=== PATIENT | female | born 1940 | race Caucasian/White ===

== ENCOUNTER 2018-11-21 09:33 | Inpatient (IN) ==
[2018-11-21] MEDS ORDERED: NITROGLYCERIN TOP ONE (10:14)
[2018-11-21] MEDS ORDERED: ASPIRIN PO ONE (10:14)
[2018-11-21] MEDS ORDERED: LASIX IV ONE (10:14)
[2018-11-21] MEDS ORDERED: CARDIZEM IV ONE (10:14)
[2018-11-21] MEDS ORDERED: NS 1,000 ML IV ONE (10:15)
[2018-11-21] MEDS ORDERED: LOVENOX 1 MG/KG SUBQ ONE (10:15)
[2018-11-21 10:26] LABS: BASO# 0.02 X1000 (0.0-0.2); BASO% 0.4 % (0.0-0.8); EOS# 0.12 X1000 (0.0-0.7); EOS% 2.5 % (0.0-10.0); HEMATOCRIT 34.3 % (37.0-47.0); HEMOGLOBIN 10.3 g/dL (12.0-16.0); LYMPH# 1.37 X1000 (1.2-3.4); MCH 28.9 PG (27-31); MCV 96.1 FL (81-99); MONO# 0.51 X1000 (0.11-0.59); MONO% 10.8 % (1.7-9.3); MPV 9.6 FL (7.4-10.4); NEUT# 2.71 X1000 (1.4-6.5); NEUT% 57.3 % (42.2-75.2); PLT 183 X1000 (130-400); RBC 3.57 XMIL (4.2-5.4); RDW 13.7 % (11.5-14.5); WBC 4.73 X1000 (4.8-10.8)
[2018-11-21] MEDS ORDERED: LOVENOX SUBQ ONE (10:30)
[2018-11-21] MEDS ORDERED: LOPRESSOR PO ONE (10:34)
--- NOTE | 2018-11-21 10:34 | Diag Imaging Result Doc PS360 ---
CHEST-PORTABLE - 11/21/2018 INDICATION: sob COMPARISON: 06/29/2017 FINDINGS: There is significant cardiomegaly and pulmonary vascular congestion. There are some heterogeneous patchy interstitial infiltrates bilaterally area these are indeterminate but suggesting pulmonary edema. No pneumothorax or significant pleural effusion. IMPRESSION: Cardiomegaly. Heterogeneous interstitial infiltrates compatible with pulmonary edema. Electronically signed by Ramírez Silva 11/21/2018 10:32 AM
[2018-11-21 10:36] LABS: INR 1.02; PROTIME 14.2 Seconds (11.0-16.0)
[2018-11-21 10:37] LABS: PTT 36.7 Seconds (22.3-41.8)
--- NOTE | 2018-11-21 10:43 | EKG Report ---
Test Performed on : 11/21/2018 10:02:59 AM Test Reason : sob Blood Pressure : / mmHG Vent. Rate : 143 BPM Atrial Rate : 147 BPM P-R Int : 000 ms QRS Dur : 108 ms QT Int : 294 ms P-R-T Axes : 000 -53 085 degrees QTc Int : 453 ms Atrial fibrillation. with rapid ventricular response. with premature ventricular or aberrantly conduc stephen complexes. Left axis deviation Septal infarct (cited on or before 17-MAR-2008) Abnormal ECG When compared with ECG of 17-MAR-2008 21:27, Atrial fibrillation. has replaced Sinus rhythm. QRS duration has increased Questionable change in initial forces of Anteroseptal leads Nonspecific T wave abnormality no longer evident in Inferior leads Unconfirmed Result
[2018-11-21 10:52] LABS: ALB/GLOB RATIO 1.4; ALBUMIN 4.2 g/dL (3.5-5.0); CALCIUM 9.7 mg/dL (8.8-10.2); CREATININE 1.7 mg/dL (0.5-0.9); MAGNESIUM 1.7 mg/dL (1.5-2.7); POTASSIUM 4.4 mmol/L (3.5-5.1); TOTAL BILIRUBIN 0.62 mg/dL (0.20-1.00); TOTAL PROTEIN 7.2 g/dL (6.3-8.3)
--- NOTE | 2018-11-21 11:22 | PROVIDER DOCUMENTATION ---
This chart was entered by Carmita Sherowod Scribe, acting as scribe for Waylon Boone MD. HPI-Cardiac General - General Chief Complaint: General Adult Stated Complaint: SOB,DIZZINESS,SLEEP ALL THE TIME Time Seen by Provider: 11/21/18 10:04 Source: patient, family (daughter) Allergies/Adverse Reactions: Patient Allergies Allergy/AdvReac Type Severity Reaction Status Date / Time Sulfa (Sulfonamide Allergy RASH Verified 11/21/18 10:15 Antibiotics) Home Medications: Home Medication List Medication Instructions Recorded Confirmed Last Taken Type Ergocalciferol (Vitamin D2) 50,000 unit PO DAILY 11/21/18 11/21/18 Unknown History [Vitamin D2] Gabapentin 600 mg PO DIRECTED 11/21/18 11/21/18 Unknown History Galantamine HBr [Galantamine ER] 8 mg PO DAILY 11/21/18 11/21/18 Unknown History Losartan/Hydrochlorothiazide 1 ea PO DAILY 11/21/18 11/21/18 Unknown History [Losartan-Hctz 100-12.5 mg Tab] Meloxicam 15 mg PO DAILY PRN 11/21/18 11/21/18 Unknown History Simvastatin 40 mg PO DAILY 11/21/18 11/21/18 Unknown History Sitagliptin Phosphate [Januvia] 100 mg PO DAILY 11/21/18 11/21/18 Unknown History Venlafaxine HCl [Venlafaxine HCl 150 mg PO DAILY 11/21/18 11/21/18 Unknown History ER] - History of Present Illness-Cardiac Nature of Presenting Problem: 78 yowf presents to the ed with her daughter at bedside. pt c/o palpitations, sob, cough, fatigue, dizziness and BLE edema for 2 weeks. ptr sts has no hx of afib or cardiac disorders. pt does have HTN. pt sts took her BP at home and noted the HR was elevated but just thought it was not a correct reading. pt has noted that in the past weeks she can not lie flat at night due to sob. pt on exam is nontoxic in appearance but mildly anxious pt is a Lisa Ortega pt but Dr Ortega deferred care to Dr Boone Quality of Pain: reports: none Severity in ED: moderate (HR 150) Onset/Duration: other (possible about 2 weeks) Timing: still present Context/Activities at Onset: reports: light activity Modifying Factors: improves with: nothing. worse with: lying down Palpitation Quality: fast/pounding heart beat History of arrythmia: reports: none Recent use of:: reports: caffeine (but deies any this am) Nitro Today/Relief: reports: provided by ED (a paste in ed) Aspirin Treatment Today: reports: 325 mg x 1, provided by ED Prior Chest Pain/Cardiac Workup: reports: no prior cardiac workup Associated Symptoms: reports: dizziness, edema, fatigue, shortness of breath. denies: abdominal pain, back pain, headache, nausea, syncope, vomiting Similar Symptoms Previously?: No Recently Seen Here or By Another Healthcare Provider: No Review of Systems - Adult - REVIEW OF SYSTEMS - ADULT Constitutional: denies: chills, fever Eyes: reports: no symptoms reported Ears, Nose, Mouth & Throat: reports: no symptoms reported Cardiovascular: reports: see HPI, edema, irregular heart rate, palpitations. denies: chest pain, syncope Respiratory: reports: no symptoms reported Gastrointestinal: denies: abdominal pain, diarrhea, nausea, vomiting Genitourinary: reports: no symptoms reported Musculoskeletal: denies: back pain, neck pain Integumentary: reports: no symptoms reported Neurological: reports: see HPI, dizziness/vertigo. denies: ataxia, headac he/migraines, numbness, paresthesia, slurred speech, syncope, tremors Psychiatric: reports: see HPI, anxiety. denies: insomnia, suicidal thoughts Endocrine: reports: no symptoms reported Hematologic/Lymphatic: reports: no symptoms reported Allergic/Immunologic: reports: no symptoms reported All Other Systems: Reviewed and Negative Past History - Adult - PAST MEDICAL HISTORY-ADULT Review of Records: reports: Old Records Reviewed, Nursing Assessment Review, Medications Reviewed, Social history reviewed & non-contributory. Major Childhood Illnesses: reports: denies history Cardiovascular: reports: HTN Respiratory: reports: denies history Gastrointestinal: reports: denies history Obstetrical/Gynecological: reports: other (Breast CA) Genitourinary: reports: denies history Musculoskeletal: reports: denies history Neurological: reports: denies history Psychiatric: reports: denies history Endocrine/Immune: reports: Diabetes Other Conditions: reports: other cancer (breast) - PRIOR SURGERIES/PROCEDURES Surgical/Procedure History: reports: tonsillectomy, other (breast biopsy) - IMMUNIZATION STATUS Childhood Immunizations: See Nurse Assessment Flu Vaccine: See Nurse Assessment - FAMILY HISTORY Family History: reviewed, not pertinent - SOCIAL HISTORY Smoking: denies Substance Use: denies Living Situation: family Physical Exam-General - PHYSICAL EXAM-ADULT Initial Vital Signs Reviewed: Yes - CONSTITUTIONAL General Appearance: appears well, alert, obese, anxious - EYES Eyes: PERRL/EOMI, pink conjunctivae - HEAD, EARS, NOSE, MOUTH & THROAT HENMT: normocephalic/atraumatic, moist mucous membranes, normal ENT inspection - NECK Neck: non-tender, full range of motion, supple, normal inspection - RESPIRATORY Respiratory: chest non-tender, decreased breath sounds. negative: respiratory distress, accessory muscle use, crackles, rales, rhonchi - CARDIOVASCULAR Cardiovascular: irregularly irregular (hr 150) - GASTROINTESTINAL (ABDOMEN) Abdominal Exam: normal bowel sounds, non tender, soft - LYMPHATIC Lymphatic: no adenopathy - MUSCULOSKELETAL Back Exam: normal inspection, no CVA tenderness, no vertebral tenderness Extremity: normal range of motion, non-tender, normal gait, swelling (BLE edema +2) - SKIN Integumentary: normal color, normal turgor, warm/dry - NEUROLOGIC Neurologic: grossly normal, no motor/sensory deficits - PSYCHIATRIC Psych/Mental Status: normal mood/affect, normal thought content, normal thought process, oriented x 3 - HEART Score HEART Score: History: Moderately Suspicious HEART Score: ECG: Non-Specific Repolarization Disturbance/LBBB/PM HEART Score: Age: > or = 65 Years HEART Score: Risk Factors for Atherosclerotic Disease: 1 or 2 Risk Factors HEART Score: Troponin: < or = Normal Limit Total HEART Score:: 5 Progress - PLAN OF CARE/RESULTS Progress/Plan/Lab Results: Vital Signs - 8 hr 11/21/18 09:57 11/21/18 10:11 11/21/18 10:12 Temperature 98.0 F Pulse Rate 150 H 152 H 137 H Respiratory Rate 18 35 H 24 Blood Pressure 114/82 85/60 O2 Sat by Pulse Oximetry 90 L 96 97 11/21/18 10:15 11/21/18 10:17 11/21/18 10:20 Temperature Pulse Rate 146 H 152 H 146 H Respiratory Rate 19 24 19 Blood Pressure 127/83 108/94 O2 Sat by Pulse Oximetry 96 96 96 11/21/18 10:30 11/21/18 10:31 Temperature Pulse Rate 109 H 101 H Respiratory Rate 24 12 Blood Pressure 106/72 O2 Sat by Pulse Oximetry 95 93 L Laboratory Results - last 24 hr 11/21/18 11/21/18 11/21/18 10:12 10:12 10:12 WBC 4.73 L RBC 3.57 L Hgb 10.3 L Hct 34.3 L MCV 96.1 MCH 28.9 MCHC 30.0 L RDW Std Deviation 13.7 Plt Count 183 MPV 9.6 Immature Gran % (Auto) 0.0 Neut % (Auto) 57.3 Lymph % (Auto) 29.0 [place] % (Auto) 10.8 H Eos % (Auto) 2.5 Baso % (Auto) 0.4 Immature Gran # (Auto) 0.00 Neut # (Auto) 2.71 Lymph # (Auto) 1.37 [place] # (Auto) 0.51 Eos # (Auto) 0.12 Baso # (Auto) 0.02 PT INR PTT (Actin FS) Sodium 144 Potassium 4.4 Chloride 104 Carbon Dioxide 28 Anion Gap 12 BUN 29 H Creatinine 1.7 H Estimated GFR/1.73 m2 29 BUN/Creatinine Ratio 17 Glucose 117 H Calculated Osmolality 294 Calcium 9.7 Magnesium 1.7 Total Bilirubin 0.62 AST 12 ALT 12 Alkaline Phosphatase 80 Creatine Kinase 60 Troponin T Mpf-O-Sgthvrgntao Pept 5746 H Total Protein 7.2 Albumin 4.2 Globulin 3.0 Albumin/Globulin Ratio 1.4 11/21/18 11/21/18 10:12 10:12 WBC RBC Hgb Hct MCV MCH MCHC RDW Std Deviation Plt Count MPV Immature Gran % (Auto) Neut % (Auto) Lymph % (Auto) [place] % (Auto) Eos % (Auto) Baso % (Auto) Immature Gran # (Auto) Neut # (Auto) Lymph # (Auto) [place] # (Auto) Eos # (Auto) Baso # (Auto) PT 14.2 INR 1.02 PTT (Actin FS) 36.7 Sodium Potassium Chloride Carbon Dioxide Anion Gap BUN Creatinine Estimated GFR/1.73 m2 BUN/Creatinine Ratio Glucose Calculated Osmolality Calcium Magnesium Total Bilirubin AST ALT Alkaline Phosphatase Creatine Kinase Troponin T < 0.010 Bnu-O-Ftmrstodnzy Pept Total Protein Albumin Globulin Albumin/Globulin Ratio Orders Category Date Time Status Cardiac Monitoring DIRECTED Care 11/21/18 10:13 Active Nursing- Obtain EKG once Care 11/21/18 10:13 Active Saline Loc NOW Care 11/21/18 10:13 Active CHEST-PORTABLE [RAD] Stat Exams 11/21/18 10:14 Completed CBC WITH ELECTRONIC DIFF [HEME] Stat Lab 11/21/18 10:12 Completed CK PROFILE [SP CHEM] Stat Lab 11/21/18 10:12 Completed COMPREHENSIVE METABOLIC PANEL [CHEM] Stat Lab 11/21/18 10:12 Completed MAGNESIUM [CHEM] Stat Lab 11/21/18 10:12 Completed PRO B-NATRIURETIC PEPTIDE Stat Lab 11/21/18 10:12 Completed PROTIME WITH INR [COAG] Stat Lab 11/21/18 10:12 Completed PTT [COAG] Stat Lab 11/21/18 10:12 Completed TROPONIN T Stat Lab 11/21/18 10:12 Completed URINALYSIS W/POSS RFLX CULT [URINALYSIS] Stat Lab 11/21/18 10:14 Uncollected 0.9% Sodium Chloride Inj [Ns] 1,000 ml Med 11/21/18 10:15 Active IV 75 mls/hr Aspirin Med 11/21/18 10:14 Discontinued 325 mg PO NOW ONE Diltiazem [Cardizem] Med 11/21/18 10:14 Discontinued 20 mg IV NOW ONE Enoxaparin 1 mg/kg [Lovenox 1 mg/kg] Med 11/21/18 10:15 Discontinued 1 each SUBQ NOW ONE Enoxaparin [Lovenox] Med 11/21/18 10:30 Discontinued 90 mg SUBQ NOW ONE Furosemide [Lasix] Med 11/21/18 10:14 Discontinued 20 mg IV NOW ONE Metoprolol [Lopressor] Med 11/21/18 10:34 Discontinued 25 mg PO NOW ONE Nitroglycerin Med 11/21/18 10:14 Discontinued 0.5 inch TOP NOW ONE EKG [EKG] Stat Ther 11/21/18 10:13 Draft Result Diagrams: 11/21/18 10:12 11/21/18 10:12 - REASSESSMENT Reassessment #1 Time Reassessed: 10:33 (dr boone at bedside) Status: unchanged Reassessment #2 Time Reassessed: 11:19 Status: improving (Much better after meds. Rate controlled with IV cardizem and po metoprolol) - EKG 1 Time of EKG reading by physician:: 10:00 EKG Read and Signed by:: Waylon Boone EKG Interpretation (*Must complete 3 of following elements*): Abnormal Rate: 143 Rhythm: afib w/ RVR w/ premature ventricular or aberrantly conducted complexes [place]: left (deviation) QRS: poor R wave progression IA Interval: normal Prior EKG Comparison: no prior EKG Comments: septal infarct, age undetermined - XRAY 1 XRAY: Bilateral XRAY Study: Chest Impression: See EMR Report (CHEST-PORTABLE - 11/21/2018 INDICATION: sob COMPARISON: 06/29/2017 FINDINGS: There is significant cardiomegaly and pulmonary vascular congestion. There are some heterogeneous patchy interstitial infiltrates bilaterally area these are indeterminate but suggesting pulmonary ed marianela. No pneumothorax or significant pleural effusion. IMPRESSION: Cardiomegaly. Heterogeneous interstitial infiltrates compatible with pulmonary edema. Electronically signed by Ramírez Silva 11/21/2018 10:32 AM 11/21/18 1032 Interpreting Physician: Ramírez Silva MD Dictated Date/Time: 11/21/18 1030 cc: Waylon Boone MD; Freddie Ortega MD) - CONSULTS/PCP/HOSPITALIST Notification #1 *Consult/PCP/Hospitalist*: Jordan Time Discussed: 11:21 Consult Disposition: Will see in ED Departure - Departure Date of Disposition Decision: 11/21/18 Time of Disposition Decision: 11:21 DIAGNOSIS: Paroxysmal atrial fibrillation with rapid ventricular response, New onset of congestive heart failure Disposition: ADMITTED INPATIENT 09 Certified Medical Emergency: Emergent Condition: Fair Referrals and Follow-Ups: Freddie Ortega MD [Primary Care Provider] - - Critical Care Note This patient required my direct & personal management of CC.: Yes Total Time (mins): 45 Critical Care Statement: This patient required my direct personal management to treat or rule out processes, the absence of which, could potentiallly result in sudden, clinically significant life or limb threatening deterioration. Comments: new onset afib with rvr Attestation - Physician/ ARIANE Attestation Patient care was provided by Advanced Practice Provider:: No The physician spent face to face time with patient:: Yes Advanced Practice Provider documentation review:: Supervising physician onsite and consulted in the evaluation and care of this patient. The physician did have a face to face encounter with the patient. This chart was documented by the indicated scribe, (Carmita Sherwood Scribe) and accurately reflects the services I performed and decisions made by me, Waylon Boone MD, as attested by the provider's signature.
[2018-11-21 11:41] LABS: URINE SOURCE CLEAN CATCH
[2018-11-21 11:49] LABS: BILIRUBIN URINE NEGATIVE (NEGATIVE); BLOOD URINE NEGATIVE (NEGATIVE); COLOR YELLOW; GLUCOSE URINE NEGATIVE (NEGATIVE); KETONE URINE NEGATIVE (NEGATIVE); LEUKOCYTES URINE LARGE (NEGATIVE); NITRITE URINE NEGATIVE (NEGATIVE); PH URINE 5.5; PROTEIN URINE NEGATIVE (NEGATIVE); SP GRAVITY URINE 1.001; TURBIDITY URINE CLEAR (CLEAR); UROBILINOGEN URINE NORMAL (NORMAL)
[2018-11-21 11:50] LABS: UR EPITHELIAL CELLS <10 /HPF (<10); URINE BACTERIA NEGATIVE /HPF; URINE RBC <10 /HPF (<10); URINE WBC 20-40 /HPF (<10)
[2018-11-21] MEDS ORDERED: SODIUM CHLORIDE 0.9% INJ PRN (13:01)
[2018-11-21] MEDS ORDERED: PHENERGAN IV PRN (13:01)
[2018-11-21] MEDS ORDERED: CARDIZEM 100 MG/NS 100 MG/100 ML IVPB IV SCH (13:01)
[2018-11-21 13:03] LABS: FREE T4 1.15 ng/dL (0.93-1.70); TSH 2.32 uIUmL (0.27-4.20)
[2018-11-21] MEDS: LASIX IV SCH (13:59)
[2018-11-21] MEDS: CARDIZEM PO SCH ×2 (13:59→17:33)
[2018-11-21] MEDS: TYLENOL PO PRN (16:27)
[2018-11-21] MEDS: HUMULIN R SUBQ SCH ×2 (16:40→20:25)
--- NOTE | 2018-11-21 17:42 | HISTORY AND PHYSICAL ---
HISTORY OF PRESENT ILLNESS: Mrs. Emily Monzon is a 78-year-old lady who is well known to me. 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 She presented to the ER with complaint of a 3-day history of increasing shortness of breath, increasing work of breathing, PND, orthopnea, dyspnea with exertion and increasing peripheral edema. Chest x-ray showed bilateral interstitial edema. Her proBNP was in excess of 5000. She denied any chest pain or anginal equivalents. She was also with complaint of palpitations. Her initial EKG demonstrated atrial fibrillation with RVR. Her heart rate was in the 130s and 140s. She was given metoprolol and IV Cardizem in the ER. PAST MEDICAL HISTORY: Type 2 fpu-poxydvt-irhosgjdd diabetes mellitus complicated by polyneuropathy, chronic renal insufficiency, essential hypertension, mild cognitive impairment, mixed hyperlipidemia. PAST SURGICAL HISTORY: Tonsillectomy with adenoidectomy, breast lumpectomy, bilateral cataract surgery. FAMILY HISTORY: Father had colon cancer. He at the age of 67. Mother had an meningioma. She at age 93. Brother at age 78 of complications of colon cancer. Her sister had colon cancer. ALLERGIES: Sulfa. MEDICATIONS: Gabapentin 600 mg 1 tablet in the morning and 2 capsules at night, galantamine ER 8 mg daily, losartan HCT 100/12.5 daily, meloxicam 15 mg daily, simvastatin 20 mg at bedtime, venlafaxine ER 150 mg daily. REVIEW OF SYSTEMS: She denies any recent weight gain or weight loss.HEENT: She wears glasses. CV: No chest pain but she has had palpitations. Pulmonary: See HPI. GI: No nausea, vomiting, reflux, dysphagia, melena, hematochezia. Endocrine: No polyuria, no polydipsia. Skin: No easy bruisability. : No leakage of urine with coughing or laughing. Neuro: No migraines or seizures. This is an acutely ill-appearing 78-year-old lady in mild distress secondary to shortness of breath. Pulse 110 and irregular, respiratory rate 20, O2 saturation 94%, BP 108/80. HEENT: Fundi with arteriolar wall thickening. Pupils equal, round, reactive to light. Extraocular eye movements intact. TMs without bullae. Neck: Supple. No masses, JVD or bruits. CV: Irregularly irregular. Lungs: Crackles in the bases bilaterally. Abdomen: Soft, nontender with active bowel sounds. Extremities: 1+ pitting edema bilaterally. Breasts/ASSISTANT COOK/Rectal: Exams deferred. Neuro: She is alert and oriented to name, place, and time. Cranial nerves 2-12 intact grossly. She has normal tone and strength in the upper and lower extremities. She has decreased light touch in the distal extremities bilaterally. ASSESSMENT AND PLAN: 1. New onset atrial fibrillation with rapid ventricular response. We will admit her to the CICU and begin a Cardizem drip per protocol. We will rule her out for myocardial ischemia by serial enzymes. We will check thyroid studies. I will arrange for a 2D echocardiogram with color Doppler and spectral flow Doppler studies. We will begin Lovenox 1 mg subcu b.i.d. 2. Hypertension. Her blood pressure is stable. We will hold the losartan HCT as her blood pressure is low after receiving diltiazem. 3. Mixed hyperlipidemia. We will continue simvastatin 40 mg at bedtime. 4. Type 2 nvw-jonwjad-gdzloidfm diabetes mellitus complicated by polyneuropathy. We will continue 1800 calorie ADA diet, pattern sugars, Humulin R sliding scale and Januvia 100 mg daily. 5. Given her comorbid conditions and clinical presentation, admission to the hospital for the management of the new onset atrial fibrillation with rapid ventricular response and acute congestive heart failure is necessary. Attempting to treat her as an outpatient would increase the risk of worsening respiratory distress and possibly . I anticipate that she will be in the hospital for at least 2 midnights and I will therefore place her in inpatient status. We will begin Lovenox 1 mg/kg subcu b.i.d. cc: Kurtis Ortega MD
[2018-11-21] MEDS ORDERED: NEURONTIN ONE (21:31)
[2018-11-21] MEDS ORDERED: LOVENOX ONE ×2 (21:31)
[2018-11-21] MEDS: NEURONTIN PO SCH (21:32)
[2018-11-21] MEDS ORDERED: LOVENOX SUBQ SCH (22:00)
--- NOTE | 2018-11-21 23:06 | ECHO REPORT ---
ORDER DATE: 11/21/2018 MEASUREMENTS: 1. Left ventricular internal diameter diastole 4.7. 2. Septal thickness 1.3. 3. Aortic root 3.1. 4. Left atrium 5.1. SUMMARY: 1. Technically difficult study due to limited acoustic window quality. 2. Aortic valve is without evidence of structural abnormality and opens adequately on 2- dimensional images. Peak gradient across aortic valve is less than 10 mmHg. Mitral and tricuspid valves are without evidence of structural abnormality while pulmonic valves not well demonstrated. There is mild mitral regurgitation and mild tricuspid regurgitation. The estimated systolic PA pressure by Doppler is 30 mmHg. The aortic root is maribell in size. 3. Normal left ventricular chamber size with mild concentric left hypertrophy suggested. Estimated left ejection fraction is approximately 25 to 30 percent the setting of global hypokinesis. Left atrium is moderately enlarged. Right atrium, right ventricle grossly normal in size with grossly preserved right ventricular systolic function. 4. No pericardial effusion. 5. Appearance of inferior vena cava suggests normal central venous pressure. cc: MD Kurtis Moreno MD
[2018-11-22] MEDS: TYLENOL PO PRN ×2 (00:05→11:58)
[2018-11-22] MEDS: LASIX IV SCH ×2 (00:31→15:36)
[2018-11-22] MEDS ORDERED: CARDIZEM 125 MG in NS 100 ML IV SCH (02:13)
[2018-11-22] MEDS: HUMULIN R SUBQ SCH ×4 (06:20→21:24)
--- NOTE | 2018-11-22 07:38 | PROGRESS NOTE ---
DATE: 11/22/2018 SUBJECTIVE: Mrs. Monzon was admitted to [facility] with new onset atrial fibrillation with rapid ventricular rate. She was placed on a Cardizem drip around 3 a.m.. Her heart rate is now in the 80s, she remains in normal sinus rhythm. Cardiac enzymes are negative to this point in time. Thyroid studies were normal. A 2D echocardiogram demonstrated mild mitral regurgitation and mild tricuspid regurgitation. She had concentric left ventricular hypertrophy with an estimated ejection fraction of 25 to 30 percent. She is breathing much more comfortably this morning. Her O2 sats range from 96% to 98% on 2 L of O2. She has had urine output of 1134 mL. OBJECTIVE: Vital signs: Temperature 97.8 degrees, pulse 88, respiratory rate 18, BP 125/81. Cardiovascular: Irregularly irregular. Lungs: Faint crackles in the bases bilaterally. Abdomen: Soft, nontender, with active bowel sounds. Extremities: Trace ankle edema. ASSESSMENT AND PLAN: 1. New onset atrial fibrillation with rapid ventricular response. Her heart rate has improved on a Cardizem drip, but given the global hypokinesis I would like to get her off the Cardizem as quickly as possible. She does not appear to have any significant valvular abnormalities or electrolyte abnormalities which would account for the atrial fibrillation. She told me yesterday that she had previous rheumatic heart fever, but her family corrected her this morning and said that she did had scarlet fever. Her symptoms have been ongoing for several days and I am concerned about the possibility of a intramural blood clot. I am going to consult cardiology for further evaluation. I wonder if she would be a good candidate for a transesophageal echocardiogram to get a better idea of her ejection fraction, and also to make sure that there is no clot. If there is no clot, then potentially she would be a candidate for cardioversion as she has not tolerated the atrial fibrillation with rapid ventricular response very well. 2. Acute congestive heart failure secondary to systolic dysfunction. She is breathing more comfortably this morning. We will continue supplemental O2, and aggressive diuresis with Lasix. I will recheck a BMP this morning. 3. Type 2 noninsulin-dependent diabetes mellitus. We will continue her on an 1800 calorie ADA diet, pattern sugars, and her regular home dosage of Januvia. cc: Kurtis Ortega MD
[2018-11-22 07:47] LABS: CALCIUM 9.7 mg/dL (8.8-10.2); CREATININE 1.6 mg/dL (0.5-0.9); POTASSIUM 3.8 mmol/L (3.5-5.1)
[2018-11-22] MEDS ORDERED: LOPRESSOR PO SCH (08:00)
[2018-11-22] MEDS ORDERED: LANOXIN PO SCH (09:00)
--- NOTE | 2018-11-22 09:19 | EKG Report ---
Test Performed on : 11/22/2018 09:05:35 AM Test Reason : afib Blood Pressure : / mmHG Vent. Rate : 092 BPM Atrial Rate : 091 BPM P-R Int : 000 ms QRS Dur : 112 ms QT Int : 366 ms P-R-T Axes : 000 -58 065 degrees QTc Int : 452 ms Atrial fibrillation. Left axis deviation Septal infarct (cited on or before 17-MAR-2008) Abnormal ECG When compared with ECG of 21-NOV-2018 10:02, (Unconfirmed) Vent. rate has decreased BY 51 BPM Unconfirmed Result
[2018-11-22] MEDS ORDERED: LANOXIN IV ONE ×2 (09:36→15:30)
[2018-11-22] MEDS: CARDIZEM PO SCH ×2 (10:11→17:35)
[2018-11-22] MEDS: JANUVIA PO SCH (10:11)
[2018-11-22] MEDS: NEURONTIN PO SCH ×2 (10:11→21:24)
[2018-11-22] MEDS: ZOCOR PO SCH (10:11)
[2018-11-22] MEDS: ELIQUIS PO SCH ×2 (10:11→21:24)
[2018-11-22] MEDS: LOPRESSOR PO SCH ×3 (10:12→21:24)
--- NOTE | 2018-11-22 14:29 | CARDIOLOGY CONSULTATION ---
DATE: 11/22/2018 REQUESTING PHYSICIAN: Omar Ortega MD INDICATION: Atrial fibrillation, dyspnea, abnormal echo. HISTORY: Mrs. Monzon is a pleasant 78-year-old female, who presented to the hospital for admission with a 4-day history of gradually increasing exertional dyspnea that led to basically orthopnea, and upon initial encounter, she was found to be in atrial fibrillation with rapid response. Initial chest x-ray showed cardiomegaly with interstitial infiltrates consistent with pulmonary edema. Initial proBNP level was noted to be elevated at 5746. Her BUN and creatinine were slightly elevated. Her hemoglobin was 10.3. She was admitted for evaluation of possible echocardiogram that was done yesterday and was reported as showing markedly impaired systolic function of left ventricle. The patient has been given diuretics and diltiazem to control her rapid atrial fibrillation. She is doing better now. Cardiology consult has been requested. PAST MEDICAL HISTORY: Positive for hypertension for a number of years. She has hyperlipidemia. She has some back pain. In 2008, she underwent a coronary arteriography by Dr. Washington Seaman that showed normal coronary arteries. She has diabetes mellitus type 2. SURGICAL HISTORY: Tonsillectomy, breast lumpectomy with breast cancer, adenoidectomy. SOCIAL HISTORY: She is , retired, lives at home with who has been diagnosed with cervical spine arthritis and has significant mobility issues, and the patient has been under a lot of stress because of that. She has been doing more carrying and lifting than ever before. The patient states that she has gained 20 pounds over the past 6 months. She admits to snoring some. FAMILY HISTORY: Father with colon cancer. Brother with colon cancer. ALLERGIES: Sulfa drugs. HOME MEDICATIONS: At the time of this admission listed in the MAR showed vitamin D2, gabapentin 1200 mg in the morning and then at bedtime, galantamine 8 mg daily, losartan/hydrochlorothiazide daily, meloxicam 50 mg daily, simvastatin 40 daily, Januvia 100 daily, venlafaxine 150 daily. REVIEW OF SYSTEMS: Other than the 20-pound weight gain is really noncontributory. PHYSICAL EXAMINATION: Vital signs: Blood pressure is 110/78, temperature 97 degrees, pulse 93, respirations 16. General: She is awake, alert, oriented, in no distress. HEENT: Unremarkable. Chest: Sounds clear to auscultation and percussion. Heart: Sounds are irregularly irregular. No gallop or murmur is noted. Abdomen: Nontender. Extremities: Showed no edema. She does have varicose veins in both legs. Neurologic: Examination nonfocal. Moves 4 extremities. IMPRESSION: 1. Patient presenting with persistent atrial fibrillation rapid response. This appears to be of new onset. 2. Systolic heart failure. 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 She has had normal coronary arteries in 2008. She is unlikely to have developed severe coronary disease in the last 10 years. 3. Decreased functional capacity. 4. Polyneuropathy. 5. Diabetes mellitus, type 2. RECOMMENDATION: At this time, we will treat the patient with combination of beta-blockers and digoxin to optimize the heart rate. We will arrange for a resting gated myocardial perfusion study. We will consider doing a stress test down the road. At this time, we will suggest a rate control strategy until her ejection fraction improves, and then arrange for an outpatient GIULIA cardioversion procedure. Subsequently, we will consider doing a full ischemic workup, although at this time, I am not very impressed about the possibility of coronary heart disease given the fact that she had normal coronary arteries at the age of 68. She already has had 2 troponin levels drawn here, and they are negative. We will follow her along. cc: MD Kurtis Reza MD
[2018-11-22] MEDS ORDERED: BLISTEX MEDICATED BERRY LIP BALM TOP PRN (21:14)
[2018-11-23] MEDS: LOPRESSOR PO SCH (03:40)
[2018-11-23] MEDS: CARDIZEM PO SCH ×2 (03:40→11:04)
[2018-11-23 06:11] LABS: CALCIUM 9.8 mg/dL (8.8-10.2); CREATININE 1.7 mg/dL (0.5-0.9); MAGNESIUM 1.3 mg/dL (1.5-2.7); POTASSIUM 3.8 mmol/L (3.5-5.1)
[2018-11-23] MEDS: HUMULIN R SUBQ SCH ×2 (06:27→11:13)
[2018-11-23] MEDS ORDERED: LEXISCAN ONE (08:28)
[2018-11-23] MEDS ORDERED: LANOXIN PO SCH (09:00)
[2018-11-23] MEDS: NEURONTIN PO SCH (11:03)
[2018-11-23] MEDS: ZOCOR PO SCH (11:03)
[2018-11-23] MEDS: LASIX IV SCH (11:03)
[2018-11-23] MEDS: ELIQUIS PO SCH (11:03)
[2018-11-23] MEDS: JANUVIA PO SCH (11:04)
[2018-11-23 11:53] VITALS: BP 118/76
[2018-11-23] MEDS ORDERED: MAGNESIUM SULFATE 4 GM/S.W.I. 4 GM/100 ML IVPB IV ONE (12:08)
--- NOTE | 2018-11-23 13:05 | PROGRESS NOTE ---
DATE: 11/23/2018 SUBJECTIVE: Ms. Monzon remains in atrial fibrillation. Her heart rate is in the 70s and 80s on a combination of oral Cardizem and Lopressor. She has had no bleeding complications secondary to the Eliquis. She had a Myoview GXT this morning. The results are still pending at this time. She is breathing comfortably. She denies any PND, orthopnea or increasing peripheral edema. OBJECTIVE: Vital Signs: Temperature 98.4 degrees, pulse 79, respirations 16, blood pressure 118/76. CV: Irregularly irregular. Lungs: Clear. Abdomen: Soft, nontender with active bowel sounds. No hepatosplenomegaly. No abdominal bruits. Extremities: Without edema. ASSESSMENT AND PLAN: 1. Atrial fibrillation. She remains in atrial fibrillation. Her heart rate is well controlled on a combination of Lopressor and Cardizem. If her Myoview GXT shows no evidence of underlying heart disease, I hope to be able to potentially discharge her home today. I am going to check a room air O2 saturation to see if we can stop the oxygen. 2. Acute congestive heart failure secondary to systolic dysfunction. We will continue a salt and fluid restricted diet and diuresis with Lasix. cc: Kurtis Ortega MD
--- NOTE | 2018-11-23 14:22 | DISCHARGE SUMMARY ---
ADMISSION DATE: 11/21/2018 DISCHARGE DATE: 11/23/2018 DISCHARGE DIAGNOSES: 1. New onset atrial fibrillation with rapid ventricular rate. 2. Acute congestive heart failure secondary to systolic dysfunction. 3. Essential hypertension. 4. Mild cognitive impairment. 5. Type 2 [id number] diabetes mellitus well controlled complicated by peripheral neuropathy. 6. Mixed hyperlipidemia. 7. Hypomagnesemia. DISCHARGE INSTRUCTIONS: Return to clinic in 1 week to see me Dr. Omar Ortega for transition of care visit ACTIVITY: As tolerated. DIET: 1800 calorie ADA diet and salt restrictions. MEDICATIONS: 1. Eliquis 2.5 mg b.i.d. 2. Cardizem CD 120 mg daily. 3. Lasix 40 mg daily and may take a second Lasix if she gains 2 pounds in 24 hours. 4. Gabapentin 600 mg in the morning and 2 tablets at night. 5. Magnesium oxide 400 mg b.i.d. 6. Toprol-XL 50 mg daily. 7. Simvastatin 10 mg at bedtime. 8. Januvia 100 mg daily. DISCHARGE PHYSICAL EXAMINATION: This is a well-developed, well-nourished, 78-year-old, lady in no apparent distress. She is afebrile. Pulse 89, respirations 16, and BP 118/76. Cardiovascular: Irregularly irregular. Lungs: Clear. Abdomen: Soft and nontender with active bowel sounds. No hepatosplenomegaly. No abdominal bruits. Extremities: Without edema. HISTORY: Mrs. Emily Monzon presented to the [facility] emergency room with complaint of palpitations and shortness of breath. She was noted to be in atrial fibrillation with RVR. She was transferred to the CICU where she was placed on a Cardizem drip. She ruled out for myocardial ischemia by serial enzymes. Thyroid studies were within normal limits. A 2D echocardiogram with color Doppler and spectral flow Doppler studies demonstrated mild mitral regurgitation, mild tricuspid regurgitation, mild concentric left ventricular hypertrophy, and an estimated ejection fraction of 25 to 30 percent. A follow-up Lexiscan demonstrated no reversible ischemia or other evidence of underlying ischemic heart disease. She was gradually weaned off the diltiazem drip, and was transitioned to oral Cardizem and Toprol. We will make arrangements for her to undergo an elective GIULIA with cardioversion in 3 weeks. While the patient was hospitalized Dr. Catalan saw her in consultation. She does have a long-standing history of mixed hyperlipidemia. She had previously taken simvastatin 40 mg at bedtime. Because we added Cardizem, we reduced the dosage of simvastatin to 10 mg at night. She does have a history of type 2 noninsulin-dependent diabetes mellitus complicated by polyneuropathy. She was continued on 1800 calorie ADA diet, pattern sugars and a Humulin R sliding scale. Blood sugars remained well controlled during her hospitalization. She was admitted to [facility] with acute congestive heart failure secondary to systolic dysfunction. Echocardiogram demonstrated an approximate EF of 25 to 30 percent. The patient was placed on a salt and fluid restricted diet and was aggressively diuresed with Lasix. We gradually increased her activity, and she was ambulating in the halls and room without dyspnea. She denied any further PND, orthopnea or worsening edema. We felt that the etiology of her systolic dysfunction was the tachycardia induced cardiomyopathy. We are hoping that with rate control and medications that her cardiac function will improve over time. Having reached maximum hospital benefit, the patient was discharged in stable condition. cc: Kurtis Ortega MD
--- NOTE | 2018-11-23 20:19 | Diag Imaging Result Document ---
PROCEDURE NAME: MYOCARDIAL PERF SCAN, STR/REST - 11/22/2018 INDICATION: A 78-year-old female. Patient presenting with paroxysmal atrial fibrillation and acute congestive heart failure. Coronary heart disease is being evaluated. DESCRIPTION: The patient came in to the nuclear lab for rest images on November 22. At that time she received an injection of technetium 99 sestamibi 36.1 mCi. Multiple tomographic views of the cardiac structures were obtained at rest. Subsequently the patient underwent a Lexiscan protocol, and 0.4 mg of Lexiscan were infused. At peak infusion, she was injected with technetium 99 sestamibi 36.9 mCi. Multiple views of the heart were obtained following the completion of the exercise protocol. SUMMARY OF THE ELECTROCARDIOGRAPHIC PORTION OF THE STUDY: Resting ECG shows atrial fibrillation, rate 80 beats per minute, resting blood pressure 127/69. Resting ECG shows atrial fibrillation with a leftward axis. During the infusion, the heart rate increased to 100 beats per minute. Blood pressure dropped to 116/68. The patient reported no chest pain, shortness of breath or palpitations. Occasional PVCs were noted. The patient remained in atrial fibrillation during the entire study. In summary, electrocardiographic response to infusion of Lexiscan is negative for pharmacologically induced myocardial ischemia. SUMMARY OF THE MYOCARDIAL PERFUSION IMAGES: Poststress tomographic views of the left ventricle showed a very trivial apical anterior defect. Rest images showed the same. There was a small focal fixed apical anterior defect consistent with breast attenuation artifact. Polar plots revealed the same. There is evidence of apical attenuation/apical thinning. There is no evidence of inducible ischemia. Gated SPECT on the rest images on November 22 showed ejection fraction of 56%, and on the poststress images on November 23, 54%. Using the alternative protocol (myometrix), the ejection fraction at rest is 38%, and poststress it is 44%. We used a 16 bin gating protocol. I believe that myometrics is probably more accurate in this particular case. The lung/heart ratio is mildly elevated on the poststress images at 0.44, and on the rest images it is 0.47. The TID is 0.93, which is normal. SUMMARY: This study shows: 1. Abnormal resting ECG. The patient was in atrial fibrillation with an unremarkable response to infusion of Lexiscan. 2. Probably normal poststress myocardial perfusion scan. There is no scintigraphic evidence of pharmacologically induced myocardial ischemia. The apical defect noted is probably a response to either attenuation artifact versus apical thinning. There is no ischemia. 3. Mildly decreased left ventricular systolic function with ejection fraction estimated at 44% using the myometrix protocol, and 54% using the [place] [employer] protocol. The impairment is mild and global. Clinical correlation recommended. This study seems to indicate a low risk for ischemic events. cc: MD Danielle Reza PA MTDD
[2018-11-23] MEDS ORDERED: MAG-OX PO SCH (21:00)
[2018-11-23] MEDS ORDERED: LOPRESSOR PO SCH (21:00)
[2018-11-24] MEDS ORDERED: CARDIZEM CD PO SCH (09:00)
[2018-11-24] MEDS ORDERED: LASIX PO SCH (09:00)
[2018-11-24] MEDS ORDERED: ZOCOR PO SCH (09:00)
[2018-11-24] MEDS ORDERED: TOPROL XL PO SCH (09:00)
== END 2018-11-23 14:15 | disposition home or self-care (01) | DRG 308 ==
LOC: ED 09:33 → EDIPHOLD 12:20 → 3S 11-22 01:29
PROVIDERS: ADMIT Internal Medicine; ATTEND Internal Medicine
CPT/HCPCS: 71010; 71045; 78452; 80048; 80053; 81001; 82550; 82948; 83735; 83880; 84439; 84443; 84481; 84484; 85025; 85610; 85730; 87088; 93005; 93010; 93017; 93306; 96361; 96372; 96374; 96375; 99285; A9270; A9500; J1160; J1650; J1940; J2785; J3475; J7030; XXXXX